=== PATIENT | male | born 1950 | race Caucasian/White ===

== ENCOUNTER → 2020-04-19 | Outpatient (CLI) | payer MEDICARE ==
[~2020-04-19] MED LIST: ISOVUE-370 76% 100ML VIAL As Ordered ONE
--- NOTE | 2020-04-19 14:29 | REP ---
INDICATION: GROSS HEMATURIA. COMPARISON: None. TECHNIQUE: CT of the abdomen and pelvis without IV contrast followed by CT of the abdomen and pelvis with IV contrast and after IV contrast dual phase scanning is performed initially during the renal cortical enhancement phase and later during the renal excretion phase. FINDINGS: There are no renal, ureteral or bladder calculi. There is no hydronephrosis. There are no renal vane masses or cysts. No bladder masses are identified. There is no perinephric stranding. There is an infrarenal abdominal aortic aneurysm measuring 2.9 x 3.5 cm. There is no periaortic hematoma. The visualized lung domínguez are unremarkable. The hepatic parenchyma, gallbladder, pancreas, spleen and adrenals are unremarkable. There is no periaortic adenopathy or mass. The bowel and mesentery are unremarkable. Pelvis: There are occasional diverticula in the proximal sigmoid colon. There is no CT evidence of diverticulitis. The pelvic bowel loops are otherwise unremarkable. There is no pelvic adenopathy or ascites. IMPRESSION: The kidneys, ureters and bladder are unremarkable by CT. There is an infrarenal abdominal aortic aneurysm measuring 2.9 x 3.5 cm. There is no periaortic hematoma. There is no adenopathy mass, mass or ascites. <Electronically signed by Bolivar Wiseman > 04/19/20 [id number]
== END ==
LOC: M RAD 09:36
PROVIDERS: ATTEND Nurse Practitioner Women's Health
DX: R31.0 Gross hematuria (principal)
CPT/HCPCS: 74178; Q9967